=== PATIENT | male | born 1960 | race Caucasian/White ===

== ENCOUNTER 2017-08-22 15:13 | Inpatient (IN) | payer OTHER ==
[~2017-08-22] VITALS: Ht 170.2 cm; Wt 59.0 kg
--- NOTE | ~2017-08-22 | HC ---
[facility] [place] [address] CONSULTATION Name: VINCENZO RED Room #: 450-P [facility] IN ..#: [id number] Admission: 08/22/17 Attend Phys: Nahun Amaya MD Discharge: Date of : 62 Report #: [id number] THIS REPORT FOR: //name// CC: Hardik Amaya Physician staff DATE OF SERVICE: 08/22/2017 REASON FOR CONSULTATION: I was asked to evaluate concerning possible intrathecal pain pump infection. HISTORY OF PRESENT ILLNESS: The patient was a 57-year-old with chronic back pain who has had an intrathecal pain pump for an extended period of time. The pain pump had malfunctioned. He has been without significant relief for at least 6 months. He; therefore, underwent revision of the apparatus. This was performed on Saturday of this week, 4 days ago. Yesterday developed a fever. Today up to 101.7 degrees. He has had chronic headache. No change in this. No pharyngitis symptoms. No rash. He has had fairly typical pain at the incision sites. No increased back pain or radicular features from his baseline. No cough or sputum production. No nausea, vomiting or diarrhea. No dysuria. No difficulty urinating or defecating. Denies any rash or adenopathy. There has been no drainage from his incisions. He was seen in the outpatient clinic and admitted for IV antibiotic therapy. ALLERGIES: None. MEDICATIONS: Included Xanax, omega 3 fatty acids, aspirin, oxycodone, Zanaflex, Glucophage, Amaryl, morphine, Zetia, vitamin C, multivitamin, omeprazole, Crestor and metoclopramide. He was started on vancomycin in the Emergency Room. PAST MEDICAL HISTORY: Diabetes, asthma, chronic back pain, coronary artery disease, cardiac stents, he has had a murmur, bilateral shoulder surgery, herniorrhaphy and chronic sinus disease. FAMILY HISTORY: Noncontributory. SOCIAL HISTORY: He is a smoker of cigarettes. No significant alcohol intake. REVIEW OF SYSTEMS: As noted above with no psychiatric issues and no other endocrine issues except for his diabetes. PHYSICAL EXAMINATION: VITAL SIGNS: Temperature 37.8, pulse 94, blood pressure 113/61 and pulse ox of 92%. GENERAL: The patient was alert and cooperative. Mental status is normal. [address] [address] CONSULTATION Name: VINCENZO RED Vickie Room #: 450[facility] IN ..#: [id number] Admission: 08/22/17 Attend Phys: Nahun Amaya MD Discharge: Date of : 62 Report #: [id number] is normal. SKIN: Unremarkable other than what will be described on his torso examination. No adenopathy. HEENT: Unremarkable. NECK: Supple. LUNGS: Clear without adventitial sounds. HEART: Regular with a 2/6 systolic murmur heard in the right upper sternal border. No gallop or rub. ABDOMEN: Soft, mild tenderness over the pocket of his infusion pump. There was no drainage along the incision line. There was very mild erythema. Most of the erythema was on his lateral abdomen along the incision of the tunnel. This area was tender. BACK: Incision was well approximated. There was no drainage. There was no fluctuance. There was no surrounding erythema. EXTREMITIES: Lower extremities unremarkable. NEUROLOGIC: Nonfocal. LABORATORY STUDIES: Urinalysis unremarkable. Hemoglobin 13.8, white count was 14.8, and platelet count was 242,000. Differential: 73% segs, 19% lymphs and monos 6.5%. Sodium 131, potassium 3.9, bicarbonate 30 and creatinine 1. Lactate 1.1. Liver function tests normal. Lipase 107. Blood cultures are pending. Chest x-ray: Mild left basilar infiltrate versus atelectasis. IMPRESSION: Postoperative fever. I am concerned about the surgical site mostly over the tunnel portion. Currently, the pocket seems reasonable as well as the entry site into the back. He does have some basilar atelectasis on the left. The patient has had no cough or sputum production. He is a smoker of cigarettes. No evidence of intraabdominal infection or urinary tract infection. RECOMMENDATIONS: We will continue vancomycin and follow response to his treatment. We will need to follow his white count, temperature curve and incisions. <ELECTRONICALLY SIGNED> By: Henry Urias MD 08/23/17 [id number] Henry Urias MD /nt
[2017-08-22 15:16] VITALS: BP 110/65
[2017-08-22 15:47] LABS: ABSOLUTE NEUTROPHILS 10.9 thou/uL (1.4-8.2); BASOPHILS 0.4 % (0.0-2.0); EOSINOPHILS 0.2 % (0.0-3.0); HEMATOCRIT 40.2 % (42.0-52.0); HEMOGLOBIN 13.8 gm/dL (14.0-18.0); LYMPHOCYTES 19.5 % (24.0-44.0); MCH 28.3 pg (26.0-34.0); MCHC 34.2 g/dL (28.0-37.0); MCV 82.9 fL (80.0-100.0); MONOCYTES 6.5 % (1.0-8.0); PLATELET COUNT 242 thou/uL (150-400); POLYS 73.4 % (36.0-66.0); RBC 4.85 mil/uL (4.50-6.00); RDW 14.9 % (10.5-14.5); WBC 14.8 thou/uL (4.0-11.0)
[2017-08-22 15:56] LABS: CALCIUM 9.2 mg/dL (8.5-10.1); POTASSIUM 3.9 mmol/L (3.5-5.1)
[2017-08-22 16:02] LABS: ALBUMIN 3.6 g/dL (3.4-5.0); DIRECT BILIRUBIN 0.1 mg/dL (<0.1-0.3); TOTAL BILIRUBIN 0.5 mg/dL (<0.1-1.0); TOTAL PROTEIN 7.8 g/dL (6.4-8.2)
[2017-08-22] MEDS ORDERED: XANAX1 MG PO (16:35)
[2017-08-22] MEDS ORDERED: LOVAZA1000 MG PO (16:35)
[2017-08-22] MEDS ORDERED: ROXICODONE30 M1 PO (16:36)
[2017-08-22] MEDS ORDERED: ASPIR 8181 MG PO (16:36)
[2017-08-22] MEDS ORDERED: ZANAFLEX4 MG PO (16:37)
[2017-08-22] MEDS ORDERED: GLUCOPHAGE XR500 MG PO (16:37)
[2017-08-22 16:38] LABS: URINE BILIRUBIN NEGATIVE (Negative); URINE BLOOD NEGATIVE (Negative); URINE CLARITY CLEAR; URINE COLOR YELLOW; URINE GLUCOSE-RANDOM* NEGATIVE (Negative); URINE KETONES NEGATIVE (Negative); URINE LEUKOCYTES NEGATIVE (Negative); URINE NITRITE NEGATIVE (Negative); URINE PROTEIN (DIPSTICK) NEGATIVE (Negative); URINE UROBILINOGEN 0.2 E.U./dl (0.2-1.0)
[2017-08-22] MEDS ORDERED: AMARYL2 MG PO (16:38)
[2017-08-22] MEDS ORDERED: MSL20MG/ML PO (16:39)
[2017-08-22] MEDS ORDERED: VITAMINC500 PO (16:39)
[2017-08-22] MEDS ORDERED: ZETIA10 MG PO (16:39)
[2017-08-22] MEDS ORDERED: MULTIVITAMINS1 EAC7 PO (16:40)
[2017-08-22] MEDS ORDERED: OMEPRAZOLE40 MG PO (16:40)
[2017-08-22] MEDS ORDERED: REGLAN 10 MG TA10 MG PO (16:41)
[2017-08-22] MEDS ORDERED: CRESTOR40 MG PO (16:41)
[2017-08-22 17:28] VITALS: BP 115/60
[2017-08-22 17:49] VITALS: BP 113/61
[2017-08-22 19:45] VITALS: BP 113/61
[2017-08-23 04:21] VITALS: BP 110/60
[2017-08-23 05:34] LABS: ABSOLUTE NEUTROPHILS 5.9 thou/uL (1.4-8.2); BASOPHILS 0.7 % (0.0-2.0); EOSINOPHILS 0.4 % (0.0-3.0); HEMATOCRIT 39.7 % (42.0-52.0); HEMOGLOBIN 13.5 gm/dL (14.0-18.0); LYMPHOCYTES 24.9 % (24.0-44.0); MCH 28.1 pg (26.0-34.0); MCV 82.7 fL (80.0-100.0); MONOCYTES 7.9 % (1.0-8.0); PLATELET COUNT 241 thou/uL (150-400); POLYS 66.1 % (36.0-66.0); RBC 4.79 mil/uL (4.50-6.00); RDW 14.8 % (10.5-14.5)
[2017-08-23 07:05] VITALS: BP 114/57
[2017-08-23 16:05] VITALS: BP 103/54
[2017-08-23 19:57] VITALS: BP 95/53
[2017-08-24 05:36] LABS: HEMATOCRIT 37.7 % (42.0-52.0); HEMOGLOBIN 12.6 gm/dL (14.0-18.0); MCH 27.8 pg (26.0-34.0); MCHC 33.6 g/dL (28.0-37.0); MCV 82.9 fL (80.0-100.0); RBC 4.54 mil/uL (4.50-6.00); RDW 14.7 % (10.5-14.5); WBC 7.7 thou/uL (4.0-11.0)
[2017-08-24 05:49] LABS: CALCIUM 8.9 mg/dL (8.5-10.1)
[2017-08-24 08:38] VITALS: BP 97/62
[2017-08-24 20:35] VITALS: BP 103/62
[2017-08-25 07:12] LABS: HEMATOCRIT 35.4 % (42.0-52.0); HEMOGLOBIN 11.9 gm/dL (14.0-18.0); MCH 27.6 pg (26.0-34.0); MCHC 33.5 g/dL (28.0-37.0); MCV 82.5 fL (80.0-100.0); RBC 4.29 mil/uL (4.50-6.00); RDW 14.6 % (10.5-14.5); WBC 9.4 thou/uL (4.0-11.0)
[2017-08-25 07:24] LABS: CALCIUM 8.5 mg/dL (8.5-10.1); CREATININE 0.7 mg/dL (0.7-1.3)
[2017-08-25 08:03] VITALS: BP 107/57
[2017-08-25 20:59] VITALS: BP 109/66
[2017-08-26 08:35] VITALS: BP 122/68
[2017-08-26] MEDS ORDERED: KEFLEX500 M1 PO (14:04)
[2017-08-26] MEDS ORDERED: VITAMIN B-121000 MC3 PO (14:04)
[2017-08-26] MEDS ORDERED: COLACE100 MG PO (14:04)
[2017-08-26 14:58] VITALS: BP 122/68
== END 2017-08-26 16:06 | disposition home or self-care (01) | DRG 91 ==
LOC: ER 15:13 → EROBS 16:24 → 4W 16:24 → SICU 08-23 19:38
PROVIDERS: Emergency Medicine; Hospitalist; Specialist
DX: T85.738A Infection and inflammatory reaction due to other nervous system device, implant or graft, initial encounter (principal); J18.9 Pneumonia, unspecified organism; E87.1 Hypo-osmolality and hyponatremia; J45.909 Unspecified asthma, uncomplicated; E78.5 Hyperlipidemia, unspecified; I25.10 Atherosclerotic heart disease of native coronary artery without angina pectoris; F17.210 Nicotine dependence, cigarettes, uncomplicated; G89.4 Chronic pain syndrome; E11.42 Type 2 diabetes mellitus with diabetic polyneuropathy; M62.838 Other muscle spasm; Y83.8 Other surgical procedures as the cause of abnormal reaction of the patient, or of later complication, without mention of misadventure at the time of the procedure; Y92.89 Other specified places as the place of occurrence of the external cause; Z86.73 Personal history of transient ischemic attack (TIA), and cerebral infarction without residual deficits; Z95.5 Presence of coronary angioplasty implant and graft; Z98.1 Arthrodesis status; Z79.82 Long term (current) use of aspirin; Z79.84 Long term (current) use of oral hypoglycemic drugs; Z79.899 Other long term (current) drug therapy
CPT/HCPCS: 10040; 15002

== ENCOUNTER → 2017-11-01 | Day surgery (SDC) | payer OTHER ==
[~2017-11-01] VITALS: Ht 170.2 cm; Wt 60.3 kg
[~2017-11-01] MED LIST: AMARYL2 MG PO; ASPIR 8181 MG PO; COLACE 100 MG100 MG PO; COLACE100 MG PO; CRESTOR40 MG PO; FIBER500 MG PO; GLUCOPHAGE XR500 MG PO; IPRAT-ALBUT 0.5-3 ML INH; KEFLEX500 M1 PO; LOVAZA1000 MG PO; MEDROL DOSPAK21 TA1 PO; MSL20MG/ML PO; MULTIVITAMINS1 EAC7 PO; OMEPRAZOLE40 MG PO; PROAIR HFA8.5 GM INH; REGLAN 10 MG TA10 MG PO; ROXICODONE30 M1 PO; SYMBICORT160 MCG/4. INH; VITAMIN B-121000 MC3 PO; VITAMIN B-12500 MCG PO; VITAMINC500 PO; XANAX1 MG PO; ZANAFLEX4 MG PO; ZETIA10 MG PO
--- NOTE | ~2017-11-01 | EKG ---
[address] [address] [place] [address] ELECTROCARDIOGRAM REPORT Name: VINCENZO RED Room #: REG [facility] M.R.#: [id number] Admission: 11/01/17 Attend Phys: Roge Goldberg, Discharge: Date of : 62 Report #: [id number] THIS REPORT FOR: //name// [facility] Test Date: 2017-11-01 Test Time: 06:23:50 Pat Name: VINCENZO RED Department: Room: Gender: M Services Engineer: gloria : 1960 Requested By: Roge Goldberg Order Number: [id number] MD: Measurements Intervals [place] Rate: 87 P: 65 MO: 143 QRS: 75 QRSD: 101 T: 30 QT: 356 QTc: 429 Interpretive Statements Sinus rhythm No previous ECG available for comparison [email or web address] By: 2 2 Jonah Mckenzie MD /EPI
[2017-11-01 07:38] VITALS: BP 114/66
== END | disposition home or self-care (01) ==
LOC: OR 05:56 → EDSTATUS 13:12 → OR 13:14
DX: T81.4XXA Infection following a procedure, initial encounter (principal); G89.4 Chronic pain syndrome; L76.34 Postprocedural seroma of skin and subcutaneous tissue following other procedure; I10 Essential (primary) hypertension; I25.10 Atherosclerotic heart disease of native coronary artery without angina pectoris; E11.9 Type 2 diabetes mellitus without complications; J45.909 Unspecified asthma, uncomplicated; G47.33 Obstructive sleep apnea (adult) (pediatric); F17.210 Nicotine dependence, cigarettes, uncomplicated; K21.9 Gastro-esophageal reflux disease without esophagitis; Z98.890 Other specified postprocedural states; Z79.899 Other long term (current) drug therapy; Z95.5 Presence of coronary angioplasty implant and graft; Z79.82 Long term (current) use of aspirin; Z86.73 Personal history of transient ischemic attack (TIA), and cerebral infarction without residual deficits; Z98.41 Cataract extraction status, right eye; Z98.42 Cataract extraction status, left eye
CPT/HCPCS: 50010; 50101; 50386; 50417; 56524; 56525; 56526; 56760; 62110; 62900; 70005

== ENCOUNTER → 2017-11-09 | Day surgery (SDC) | payer OTHER ==
[~2017-11-09] VITALS: Ht 170.2 cm; Wt 60.3 kg
[2017-11-09 08:35] VITALS: BP 138/69
== END | disposition home or self-care (01) ==
LOC: OR 07:21
DX: T81.4XXA Infection following a procedure, initial encounter (principal); L76.34 Postprocedural seroma of skin and subcutaneous tissue following other procedure; I10 Essential (primary) hypertension; I25.2 Old myocardial infarction; E11.9 Type 2 diabetes mellitus without complications; E78.5 Hyperlipidemia, unspecified; J45.909 Unspecified asthma, uncomplicated; G47.33 Obstructive sleep apnea (adult) (pediatric); F17.210 Nicotine dependence, cigarettes, uncomplicated; F41.9 Anxiety disorder, unspecified; K21.9 Gastro-esophageal reflux disease without esophagitis; Z86.73 Personal history of transient ischemic attack (TIA), and cerebral infarction without residual deficits; Z95.5 Presence of coronary angioplasty implant and graft; Z98.890 Other specified postprocedural states; Z98.41 Cataract extraction status, right eye; Z98.42 Cataract extraction status, left eye; Z87.19 Personal history of other diseases of the digestive system; Y83.8 Other surgical procedures as the cause of abnormal reaction of the patient, or of later complication, without mention of misadventure at the time of the procedure
CPT/HCPCS: 50010; 50101; 50386; 50417; 56524; 56526; 56528; 62110; 62850; 62900; 70005